=== PATIENT | female | born 1960 | race Caucasian/White ===

== ENCOUNTER 2018-07-05 15:20 | Outpatient (CLI) | payer BC | END 2018-07-05 15:21 | disposition home or self-care (01) | LOC: BICMAMMO 15:20 | PROVIDERS: ATTEND Obstetrics & Gynecology | DX: Z12.31 Encounter for screening mammogram for malignant neoplasm of breast (principal) | CPT/HCPCS: 77063; 77067 ==

== ENCOUNTER 2019-03-04 14:51 | Outpatient (CLI) | payer BC ==
--- NOTE | 2019-03-04 15:48 | RAD ---
Lumbar spine 4 views flexion and extension HISTORY: Low back pain. Neurogenic claudication. FINDINGS: Weightbearing views. There are 5 lumbar type vertebrae. Pedicles are intact. Mild rightward convex rotatory scoliotic curvature on the frontal view. Osteophytosis throughout the lower facets. Vertebral body heights are maintained. Minimal degenerative spondylolisthesis at the L4/5 lev el without change upon flexion or extension. IMPRESSION: Mild degenerative changes lower lumbar spine. No acute osseous abnormalities are demonstr ated.
--- NOTE | 2019-03-04 16:33 | MRI ---
MRI lumbar spine noncontrast HISTORY: Low back pain with bilateral radiculopathy. FINDINGS: Conus medullaris has a normal appearance. Vertebral body heights and alignment are maintain ed. Desiccation of the lowest 4 intervertebral discs. T12-L1, L1-2, L2-3: Mild osteophytosis. Central canal and neural foramina are patent. L3-4: Minimal disc bulge. Mild right foraminal stenosis due to osteophytosis and disc bulge. Thecal s ac is patent. L4-5: Minimal disc bulge. Degenerative changes of the facets. Moderate bilateral foraminal stenoses. L5-S1: Osteophytosis and posterior ligamentous thickening. Central canal is patent. Severe bilateral foraminal stenoses. 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 IMPRESSION: Degenerative changes lower lumbar spine, with stenoses most severe at each neural foramen of the sacral junction. Clinical correlation regarding each L5 dermatome is required.
== END 2019-03-04 14:52 | disposition home or self-care (01) ==
LOC: BICMRI 14:51
PROVIDERS: ATTEND Neurological Surgery
DX: M48.062 Spinal stenosis, lumbar region with neurogenic claudication (principal); M54.5 Low back pain; M47.816 Spondylosis without myelopathy or radiculopathy, lumbar region; M48.08 Spinal stenosis, sacral and sacrococcygeal region
CPT/HCPCS: 72110; 72148

== ENCOUNTER 2021-03-29 09:49 | Outpatient (CLI) | payer BC | END 2021-03-29 09:50 | disposition home or self-care (01) | LOC: BICMAMMO 09:49 | PROVIDERS: ATTEND Obstetrics & Gynecology | DX: Z12.31 Encounter for screening mammogram for malignant neoplasm of breast (principal) | CPT/HCPCS: 77063; 77067 ==

== ENCOUNTER 2023-06-05 13:22 | Outpatient (CLI) | payer BC | END 2023-06-05 13:23 | disposition home or self-care (01) | LOC: BICMAMMO 13:22 | PROVIDERS: ATTEND Obstetrics & Gynecology | DX: Z12.31 Encounter for screening mammogram for malignant neoplasm of breast (principal) | CPT/HCPCS: 77063; 77067 ==